=== PATIENT | female | born 1985 | race Caucasian/White ===

== ENCOUNTER → 2018-07-20 15:55 | Outpatient (CLI) | payer OTHER, SELFPAY ==
--- NOTE | 2018-07-20 15:58 | DI.MRI.S_ITS ---
PROCEDURE: MR ANKLE LT WO CON INDICATIONS: BILATERAL ANKLE PAIN TECHNIQUE: Noncontrast sagittal T1 spin echo and T2 fast spin echo with fat saturation, axial proton density fast spin echo and T2 fast spin echo with fat saturation, coronal T1 spin echo and T2 fast spin echo with fat saturation through the ankle/hindfoot. COMPARISON: None. FINDINGS: Image quality: Excellent. Bones and joints: No bone marrow contusions or fractures. No hindfoot coalitions. No osteochondral injuries of the talar dome. No pathologic joint effusions. Medial structures: The posterior tibialis, flexor digitorum longus, and flexor hallucis longus tendons are intact. The posterior tibial neurovascular bundle appears normal within the tarsal tunnel, without extrinsic mass effect. The deep layer (anterior and posterior tibiotalar ligaments) and superficial layer (tibionavicular, tibiospring, and tibiocalcaneal ligaments) of the deltoid ligament appear normal. The spring ligament components (superomedial calcaneonavicular, medioplantar oblique calcaneonavicular, and inferoplantar longitudinal ligaments) are intact. Lateral structures: The anterior talofibular, calcaneofibular, and posterior talofibular ligaments appear intact. More superiorly, the anterior and posterior tibiofibular ligaments appear intact, as is the intermalleolar ligament. The tibiofibular syndesmosis is normal in width at 2 mm or less. The peroneus longus and brevis tendons demonstrate normal location and morphology. Adjacent bony peroneal tubercle and retrotrochlear prominence are normal in size. The sinus tarsi demonstrates normal fatty signal, without edema, fibrosis, or cyst formation. Visualized sinus tarsi components (cervical ligament, interosseous talocalcaneal ligament, roots of the inferior extensor retinaculum) appear normal. The calcaneonavicular and calcaneocuboid components of the bifurcate ligament appear intact. The dorsal calcaneocuboid ligament appears intact. Anterior structures: The tibialis anterior, extensor hallucis longus, and extensor digitorum longus tendons appear intact. The dorsal talonavicular ligament appears intact. Posterior and plantar structures: Achilles tendon is intact. Achilles tendon is slightly thickened with adjacent peripheral increased T2 signal Medial and lateral bands of the plantar fascia are of normal thickness. No abductor digiti quinti muscle atrophy to suggest Kaur neuropathy. IMPRESSION: 1. Mild Achilles tendinosis. 2. No internal arrangement. Dictated by: Bessie Goss MD, PhD on 07/20/2018 at 17:39 Approved by: Bessie Goss MD, PhD on 07/23/2018 at 20:33
--- NOTE | 2018-07-20 15:58 | DI.MRI.S_ITS ---
PROCEDURE: MR ANKLE RT WO CON INDICATIONS: BILATERAL ANKLE PAIN TECHNIQUE: Noncontrast sagittal T1 spin echo and T2 fast spin echo with fat saturation, axial proton density fast spin echo and T2 fast spin echo with fat saturation, coronal T1 spin echo and T2 fast spin echo with fat saturation through the ankle/hindfoot. COMPARISON: None. FINDINGS: Image quality: Excellent. Bones and joints: No bone marrow contusions or fractures. No hindfoot coalitions. No osteochondral injuries of the talar dome. No pathologic joint effusions. Medial structures: The posterior tibialis, flexor digitorum longus, and flexor hallucis longus tendons are intact. The posterior tibial neurovascular bundle appears normal within the tarsal tunnel, without extrinsic mass effect. The deep layer (anterior and posterior tibiotalar ligaments) and superficial layer (tibionavicular, tibiospring, and tibiocalcaneal ligaments) of the deltoid ligament appear normal. The spring ligament components (superomedial calcaneonavicular, medioplantar oblique calcaneonavicular, and inferoplantar longitudinal ligaments) are intact. Lateral structures: The anterior talofibular, calcaneofibular, and posterior talofibular ligaments appear intact. More superiorly, the anterior and posterior tibiofibular ligaments appear intact, as is the intermalleolar ligament. The tibiofibular syndesmosis is normal in width at 2 mm or less. The peroneus longus and brevis tendons demonstrate normal location and morphology. Adjacent bony peroneal tubercle and retrotrochlear prominence are normal in size. The sinus tarsi demonstrates normal fatty signal, without edema, fibrosis, or cyst formation. Visualized sinus tarsi components (cervical ligament, interosseous talocalcaneal ligament, roots of the inferior extensor retinaculum) appear normal. The calcaneonavicular and calcaneocuboid components of the bifurcate ligament appear intact. The dorsal calcaneocuboid ligament appears intact. Anterior structures: The tibialis anterior, extensor hallucis longus, and extensor digitorum longus tendons appear intact. The dorsal talonavicular ligament appears intact. Posterior and plantar structures: Achilles tendon is intact. The Achilles tendon is slightly thickened with increased peripheral T2 signal. There is a small ganglion cysts at the insertion of the Achilles tendon on the calcaneus. Medial and lateral bands of the plantar fascia are of normal thickness. No abductor digiti quinti muscle atrophy to suggest Kaur neuropathy. IMPRESSION: 1. Mild Achilles tendinosis. 2. Small Achilles ganglion cyst. Dictated by: Bessie Goss MD, PhD on 07/20/2018 at 17:38 Approved by: Bessie Goss MD, PhD on 07/23/2018 at 20:30
== END ==
PROVIDERS: Visit Provider Podiatrist
DX: M25.572 Pain in left ankle and joints of left foot (principal); M25.571 Pain in right ankle and joints of right foot; M67.471 Ganglion, right ankle and foot; M67.873 Other specified disorders of tendon, right ankle and foot; M67.874 Other specified disorders of tendon, left ankle and foot
CPT/HCPCS: 73721

== ENCOUNTER 2018-11-14 07:20 | Day surgery (SDC) | payer OTHER, SELFPAY ==
--- NOTE | 2018-11-14 | PATH_ITS ---
[facility] Accession Number: [id number] . 01 Material submitted: . PART A: small bowel - SMALL BOWEL BIOPSIES PART B: gastrointestinal site - GASTRIC BIOPSIES . 01 Clinical history: . UNSPECIFIED ABDOMINAL PAIN B. R/O H. PYLORI . 02 Diagnosis: A. Small Bowel Biopsies: Small bowel mucosa with no diagnostic abnormality. Negative for active inflammation, features of sprue, dysplasia and malignancy. . B. Stomach, Biopsies: Antral and body-type mucosa with no diagnostic abnormality. Negative for Helicobacter organisms by immunohistochemistry. Negative for intestinal metaplasia. Negative for dysplasia and malignancy. . [facility] 11/16/2018 1412 Local . 02 Electronically signed: . Shabana Jurado MD, Pathologist NPI- [id number] . 01 Gross description: . Part A: SMALL BOWEL BIOPSIES: Received in formalin are 3 fragment(s) of ibarra, soft tissue measuring 0.1 x 0.1 x 0.1 cm to 0.2 x 0.2 x 0.2 cm which is entirely submitted and submitted entirely in 1 cassette(s) Part B: GASTRIC BIOPSIES: Received in formalin are 2 fragment(s) of ibarra, soft tissue measuring 0.1 x 0.1 x 0.1 cm to 0.3 x 0.2 x 0.2 cm which is entirely submitted and submitted entirely in 1 cassette(s) /[facility] [place] [facility] 11/14/2018 1909 Local . 02 Microscopic: . B. An immunohistochemical stain was performed to evaluate for Helicobacter organisms and is negative. The control stain showed appropriate reactivity. . * This test was developed and its performance characteristics determined by [facility]. It has not been cleared or approved by the U.S. Food and Drug Administration. The FDA has determined that such clearance or approval is not necessary. This test is used for clinical purposes. It should not be regarded as investigational or for research. . 02 Pathologist provided ICD-10: R10.9 . 02 CPT . 857855, 552884, [id number] Performed at: 01 [facility] [address] [id number] MD Karan Holbrook MD Phone: [phone] Performed at: 02 [place] [id number] [place] [id number] MD Shabana Jurado MD Phone: [phone]
[2018-11-14 07:44] VITALS: BP 115/71; PULSE 73; RESP 12; TEMP 36.2; O2SAT 100; BMI 21.1
--- NOTE | 2018-11-14 09:03 | PM.HP.1 ---
History of Present Illness History of Present Illness Date Patient Seen: 11/14/18 Time Patient Seen: 09:04 Chief complaint: [id number] Narrative: Ishmael is a 32 year old female who presented for EGD. Denies changes history since office vsisit 10/25/18. Patient History Medical History Achilles rupture, right (Acute) Anxiety (Acute) PTSD (post-traumatic stress disorder) (Acute) [place] teeth extracted (Acute) Surgical History H/O Achilles tendon repair (Acute) Family History (Updated 11/14/18 @ 07:57 by Siomara Rizvi RN) Grandmother Stomach cancer Social History household members: other Family & Social History Family History (Updated 11/14/18 @ 07:57 by Siomara Rizvi RN) Grandmother Stomach cancer Social History: household members other Meds Home Medications and Allergies Home Medications Medication Instructions Recorded Confirmed Type Lexapro 30 mg PO DAILY 11/14/18 11/14/18 History Singulair 10 mg PO DAILY 11/14/18 11/14/18 History cetirizine [Zyrtec] 10 mg PO DAILY 11/14/18 11/14/18 History clonidine 0.3 mg PO QPM 11/14/18 11/14/18 History Allergies Allergy/AdvReac Type Severity Reaction Status Date / Time red dye Allergy Severe Swelling Verified 11/14/18 07:58 of Lip/Tongue/Throat yellow dye AdvReac Intermediate Anaphylaxis Verified 11/14/18 08:00 Review of Systems Review of Systems ROS Unobtainable: All systems reviewed & are unremarkable except as noted in HPI and below Exam Vital Signs (past 8 hours): - 11/14/18 07:44 Temperature 97.1 F L Pulse Rate 73 Respiratory Rate 12 Blood Pressure 115/71 Pulse Oximetry 100 Oxygen Delivery Method Room Air Narrative Exam Narrative: No acute distress Const General: cooperative, healthy appearing and comfortable Nutritional Appearance: well nourished Orientation: alert, awake and oriented x3 Neck Neck: normal visual inspection Resp Effort & Inspection: normal respiratory effort and able to speak in complete sentences Auscultation: clear to auscultation bilaterally Cardio Rate: regular rate Rhythm: regular rhythm Heart Sounds: S1 normal and S2 normal GI Palpation: soft and no hepatosplenomegaly Auscultation: normal bowel sounds Extrem General: normal to inspection Assessment & Plan Assessment & Plan narrative: 1. Abdominal pain 2. Diarrhea 3. Nausea and votmiting - EGD today
--- NOTE | 2018-11-14 09:21 | PM.OP.ENDO ---
Operative Date/Time/Diagnoses Date of procedure: 11/14/18 Time of procedure: 09:06 Pre-op diagnosis: Epigastric pain, Nausea and vomiting, diarrhea Procedure & Clinicians Study performed: Esophagogastroduodenoscopy with biopsy Surgeon: Cynthia Snyder Procedure Notes Procedure in detail: Surgeon: Cynthia Snyder DO Procedure: Esophagogastroduodenoscopy with biposy Preoperative diagnosis: Epigastric pain, Nausea and vomiting, Diarrhea Postoperative diagnosis: 1. Mild Gastritis - biopsied for h pylori 2. Normal appearing esophagus 3. Normal appearing Duodenum - biopsied for celaic sprue Medications: Conscious sedation using 8 mg IV of Midazolam and 125 mcg IV of Fentanyl Preanesthesia Assessment An H and P was performed/updated and the Px?s ASA class is 1. The procedure was discussed in detail with the patient. The potential risks and complications including infection, bleeding, missed lesions, perforation, need for surgery in case of perforation, prolonged hospital stay, and were explained. A brief question and answer period was allotted and once all questions were answered, informed consent was obtained. The patient was brought back to the procedure room and placed on standard monitoring. The patient?s vital signs were monitored continuously throughout the entire procedure. Prior to starting, a timeout was performed to confirm the patient?s identity, allergies, medications, and procedure. Procedure in detail The patient was placed in left lateral decubitus position and a bite block was inserted. The tip of the upper endoscope was placed into the mouth and advanced without difficulty under direct visualization into the esophagus. Esophagus: - Normal appearing esophagus and Z line Stomach: - Mild antral gastritis - biopsied - Normal on retroflex Duodenum: - Normal appearing duodenum - biopsied The patient tolerated the procedure well and will be brought back to the recovery area to be discharged once criteria are met. The total physician intraservice time was 15min . Complications There were no complications and estimated blood loss was minimal. Recommendations: Resume previous diet Continue outPx medications Follow up pathology results Office follow up if persistent symptoms An emergency contact number was given to the patient for any complications related to the procedure Sedation minutes: 15
[2018-11-14] MEDS: MIDAZOLAM 5 MG/5 ML VIAL IV (09:25)
[2018-11-14] MEDS: fentaNYL 250 MCG/5 ML INJ IV (09:25)
[2018-11-14 09:28] VITALS: BP 112/70; PULSE 87; RESP 16; TEMP 36.7; O2SAT 96
[2018-11-14 09:33] VITALS: BP 111/73; PULSE 88; RESP 17; O2SAT 97
[2018-11-14 09:38] VITALS: BP 109/67; PULSE 84; RESP 16; O2SAT 97
[2018-11-14 09:42] VITALS: BP 117/74; PULSE 90; RESP 14; O2SAT 97
--- NOTE | 2018-11-14 09:54 | SUR.PHASEI ---
PACU Phase 1 note; pt transferred A/O, stable, VSS, no n/v
[2018-11-14 10:15] VITALS: BP 102/68; PULSE 92; RESP 16; TEMP 37.3; O2SAT 99
== END 2018-11-14 10:15 | disposition home or self-care (01) ==
PROVIDERS: PCP Registered Nurse Diabetes Educator; Visit Provider Student in an Organized Health Care Education/Training Program
PROC: 0DJ08ZZ Inspection of Upper Intestinal Tract, Via Natural or Artificial Opening Endoscopic (ICD-10-PCS; CPT 43235; principal; 2018-11-14 09:00)
DX: K29.70 Gastritis, unspecified, without bleeding (principal)
CPT/HCPCS: 43239; J2250; J3010

== ENCOUNTER 2019-03-23 02:48 | Observation (INO) | payer OTHER, SELFPAY ==
[2019-03-23] VITALS (15 sets, daily range): BP systolic 79–130; BP diastolic 43–82; PULSE 60–93; RESP 13–22; TEMP 35.9–37.1; O2SAT 96–100; BMI 21.4; BMI 20.8
--- NOTE | 2019-03-23 | PATH_ITS ---
[facility] Accession Number: [id number] . 01 Material submitted: . appendix - APPENDIX . 01 Clinical history: . STOMACH PAINS/SWELLING, VOMITING X3 HOURS . 02 Diagnosis: Appendix, Appendectomy: Acute suppurative appendicitis with serositis. No evidence of dysplasia or malignancy. [facility] 03/27/2019 1337 Local . 02 Electronically signed: . Shabana Jurado MD, Pathologist NPI- [id number] . 01 Gross description: . Received in formalin, labeled appendix, is an intact appendix (length-5.7 cm, diameter-0.9 cm) with weston-white smooth shiny partially exudate-covered serosa and mesoappendix (up to 1.5 cm in depth). The resection margin is received open. The lumen contains clear colorless fluid. The wall is up to 0.2 cm. No nodules, masses or lesions are identified. The resection margin is inked blue. Section code: (A1) resection margin en face and three security systems sales representative serial sections; (A2) one-half of the bivalved tip. ([id number]) /MRV 03/26/2019 1259 Local . 02 Pathologist provided ICD-10: K35.80 . 02 CPT . 245666 Performed at: 01 [facility] [address], [place], [place] [id number] MD Karan Holbrook MD Phone: [phone] Performed at: 02 [facility] [address] [place], [place] [id number] MD Shabana Jurado MD Phone: [phone]
[2019-03-23] MEDS: SODIUM CHLORIDE 0.9% 1,000 ML 1000 ML IV (03:02)
[2019-03-23] MEDS: ONDANSETRON 4 MG/2 ML INJ IV (03:02)
[2019-03-23 03:05] LABS: Add Manual Diff / Slide Review NO; Basophils Absolute Auto 0 /uL (0-100); Basophils Percent Auto 0.2 % (0-2); Eosinophils Absolute Auto 0 /uL (0-450); Hemoglobin 14.1 g/dL (12.0-16.0); Lymphocytes Absolute Auto 700 /uL (1100-4500); Lymphocytes Percent Auto 3.4 % (25-40); Mean Corpuscular HGB Conc 35.2 % (30-36); Mean Corpuscular Hemoglobin 34.1 PG (26-34); Mean Corpuscular Volume 96.9 fL (80-100); Monocytes Absolute Auto 600 /uL (0-900); Monocytes Percent Auto 3.2 % (3-14); Neutrophils Absolute Auto 18700 /uL (1500-7000); Neutrophils Percent Auto 93.2 % (50-75); Platelet Count 235 X10^3/uL (150-400); Red Blood Cell Count 4.12 X10^6/uL (4.0-5.2); Red Cell Distribution Width 12.9 % (11.6-14.8); White Blood Cell Count 20.1 X10^3/uL (4.5-11.0)
--- NOTE | 2019-03-23 03:13 | DI.CT.S_ITS ---
PROCEDURE: CT ABDOMEN PELVIS W CON INDICATIONS: Right lower quadrant abdominal pain eval for appy TECHNIQUE: After the administration of oral and intravenous contrast, 5 mm thick sections acquired from the diaphragms to the symphysis. 5 mm thick coronal and sagittal reformats were performed. For radiation dose reduction, the following was used: automated exposure control, adjustment of mA and/or kV according to patient size. COMPARISON: None. FINDINGS: Image quality: Diagnostic. ABDOMEN: Lung bases: Lung bases are clear. Heart size is normal. Solid organs: Liver is normal in size and enhancement. Gallbladder is not enlarged or adequately evaluated. Biliary system is non-dilated. Pancreas enhances normally. Spleen is normal in size and enhancement. No adrenal nodules. Kidneys are normal in size and enhancement, without hydronephrosis. Peritoneum and bowel: The stomach is unremarkable. The small bowel loops are nondilated. A moderate amount of residual stool is seen within the proximal colon. The appendix is slightly prominent in size and demonstrates peripheral enhancement, measuring up to approximately 10 mm in diameter (image 25, series 4). No definite appendicoliths are appreciated. No free fluid or loculated fluid collection is identified. There is no free air. Nodes and vessels: No retroperitoneal or mesenteric adenopathy. Aorta and inferior vena cava are normal in caliber. Bones: No acute fracture or suspicious osseous lesion is identified. Mild degenerative changes at the thoracolumbar junction are noted. There may be small posterior disc bulges on the lower lumbar spine which are not well characterized on CT. PELVIS: Genitourinary: Bladder wall thickness is normal. An intrauterine contraceptive device is noted. The ovaries are not adequately seen, but do not appear to be enlarged. Miscellaneous: No inguinal hernias or adenopathy. A small amount of free fluid is seen within the pelvis. There is no loculated fluid collection or free air. Bones: No suspicious bony lesions. No acute pelvic fractures are identified. IMPRESSION: 1. Mild acute appendicitis. 2. Small amount of pelvic ascites is likely reactive. There is no abscess appreciated. 3. No bowel obstruction. 4. Mild proximal colonic constipation. Note: The preliminary report provided by [employer]. is concordant with the final report. Dictated by: Ronnell Simental M.D. on 03/23/2019 at 9:05 Approved by: Ronnell Simental M.D. on 03/23/2019 at 9:11
--- NOTE | 2019-03-23 03:13 | ED_ITS ---
HPI - Abdominal Pain General Chief Complaint: Abdominal Pain Stated Complaint: stomach pains/swelling, vomitting x3hrs Time Seen by Provider: 03/23/19 02:53 Source: patient Mode of arrival: Family Vehicle Limitations: no limitations History of Present Illness HPI narrative: 33-year-old female here for evaluation of generalized abdominal pain nausea and vomiting and diarrhea. Pain started within the past 12 hours. Has worsened since then. No fevers. No urinary symptoms. No vaginal bleeding. Has an IUD in place that his been there for the past year. Has not had any regular menstrual cycle since then. No prior abdominal surgeries. Has been in the past. Has not tried anything for symptoms prior to arrival. Patient states the abdominal pain started prior to the nausea and vomiting and diarrhea Related Data Home Medications Medication Instructions Recorded Confirmed Lexapro 30 mg PO DAILY 11/14/18 11/14/18 Singulair 10 mg PO DAILY 11/14/18 11/14/18 cetirizine [Zyrtec] 10 mg PO DAILY 11/14/18 11/14/18 clonidine 0.3 mg PO QPM 11/14/18 11/14/18 Allergies Allergy/AdvReac Type Severity Reaction Status Date / Time red dye Allergy Severe Swelling Verified 03/23/19 05:12 of Lip/Tongue/Throat yellow dye AdvReac Intermediate Anaphylaxis Verified 03/23/19 05:12 Review of Systems Constitutional Constitutional: Denies fever(s) Cardiovascular Cardiovascular: Denies chest pain and Denies dyspnea Respiratory Respiratory: Denies dyspnea Gastrointestinal Gastrointestinal: Reports abdominal pain, Reports diarrhea, Reports nausea and Reports vomiting Genitourinary Genitourinary: Denies dysuria and Denies vaginal discharge Musculoskeletal Musculoskeletal: Denies myalgias and Denies arthralgias Integumentary/Breasts Skin/Breast: Denies rash Neurologic Neurologic: Denies behavioral changes Psychiatric Psychiatric: Denies behavioral changes Hematologic/Lymphatic Hematologic/Lymphatic: Denies easy bleeding and Denies easy bruising Patient History Medical History Achilles rupture, right (Acute) Anxiety (Acute) PTSD (post-traumatic stress disorder) (Acute) Family History (Updated 11/14/18 @ 07:57 by Siomara Rizvi RN) Grandmother Stomach cancer Social History household members: other Smoking Status: Never smoker Smoking Status: Never smoker Substance Use Type: does not use Exam Initial Vital Signs Initial Vital Signs: Vital Signs Temperature 98.1 F 03/23/19 02:55 Pulse Rate 78 03/23/19 02:55 Respiratory Rate 17 03/23/19 02:55 Blood Pressure 130/82 03/23/19 02:55 Pulse Oximetry 97 03/23/19 02:55 Const General: cooperative, No comfortable (Uncomfortable), well developed and well groomed Limitations: mental status not altered HENCO Head: normal to inspection and normocephalic Resp Effort & Inspection: normal respiratory effort Auscultation: clear to auscultation bilaterally Cardio Rate: regular rate Rhythm: regular rhythm GI Inspection: non-distended Palpation: soft, No firm, guarding and tender (Generalized with right lower quadrant in greatest point of pain) Back/Spine/Pelvis Back: No CVA tenderness Skin Lesions: no lesions Rashes: no rashes Neuro General: alert and awake Cognition: normal cognition Speech: speech normal Extrem General: normal to inspection and capillary refill normal Psych Appearance: grossly normal and well kempt Course Orders Ordered: ED Orders 03/23/19 03:00 Complete Blood Count AUTO DIFF Stat Comprehensive Metabolic Panel Stat Lipase Stat Test Serum,Qual Stat 03/23/19 03:13 CT abdomen pelvis w con Stat Sodium Chloride (Normal Saline 0.9%) 1,000 mls @ 125 mls/hr IV CONT MAGED Last Admin: 03/23/19 05:08 Dose: 125 mls/hr Documented by: RODRIGO Discontinued Medications Sodium Chloride (Normal Saline 0.9%) 1,000 mls @ 1,000 mls/hr IV BOLUS ONE Stop: 03/23/19 03:53 Last Infusion: 03/23/19 04:17 Dose: 0 mls/hr Documented by: Admin: 03/23/19 03:02 Dose: 1,000 mls/hr Documented by: RODRIGO Piperacillin/Tazobactam/Dextrose (Zosyn) 3.375 gm in 50 mls @ 100 mls/hr IV NOW ONE Stop: 03/23/19 05:25 Last Infusion: 03/23/19 05:46 Dose: 0 mls/hr Documented by: Admin: 03/23/19 05:08 Dose: 100 mls/hr Documented by: RODRIGO Morphine Sulfate (Morphine) 4 mg IV NOW ONE Stop: 03/23/19 03:13 Last Admin: 03/23/19 03:18 Dose: 4 mg Documented by: RODRIGO Morphine Sulfate (Morphine) 2 mg IV NOW ONE Stop: 03/23/19 05:12 Last Admin: 03/23/19 05:14 Dose: 2 mg Documented by: RODRIGO Ondansetron HCl (Zofran) 4 mg IV NOW ONE Stop: 03/23/19 02:55 Last Admin: 03/23/19 03:02 Dose: 4 mg Documented by: RODRIGO Vital Signs Vital signs: Vital Signs - 8 hr 03/23/19 02:55 03/23/19 04:12 Temperature 98.1 F Pulse Rate 78 60 Respiratory Rate 17 22 Blood Pressure 130/82 Blood Pressure [Left Arm] 118/73 Pulse Oximetry 97 99 MDM - Abdominal Pain Lab Data Attestation: I reviewed the patient's lab results. Result diagrams: 03/23/19 03:00 03/23/19 03:00 Labs: Lab Results 03/23/19 03/23/19 03/23/19 Range/Units 03:00 03:00 03:00 WBC 20.1 H (4.5-11.0) X10^3/uL RBC 4.12 (4.0-5.2) X10^6/uL Hgb 14.1 (12.0-16.0) g/dL Hct 40.0 (36-46) % MCV 96.9 (80-100) fL MCH 34.1 H (26-34) PG MCHC 35.2 (30-36) % RDW 12.9 (11.6-14.8) % Plt Count 235 (150-400) X10^3/uL Neut % (Auto) 93.2 H (50-75) % Lymph % (Auto) 3.4 L (25-40) % [place] % (Auto) 3.2 (3-14) % Eos % (Auto) 0.0 L (2-4) % Baso % (Auto) 0.2 (0-2) % Neut # (Auto) 99546 H (6862-9584) /uL Lymph # (Auto) 700 L (3192-4146) /uL [place] # (Auto) 600 (0-900) /uL Eos # (Auto) 0 (0-450) /uL Baso # (Auto) 0 (0-100) /uL Sodium 139 (137-145) mmol/L Potassium 4.0 (3.4-5.1) mmol/L Chloride 101 (98-107) mmol/L Carbon Dioxide 27 (22-32) mmol/L BUN 13 (7-17) mg/dL Creatinine 0.70 (0.52-1.04) mg/dL Estimated GFR > 60.0 (>60) mL/min BUN/Creatinine Ratio 18.6 (6-22) Glucose 182 H (70-100) mg/dL Calcium 9.9 (8.4-10.2) mg/dL Total Bilirubin 0.9 (0.2-1.3) mg/dL AST 27 (14-36) IU/L ALT 18 (<35) IU/L Alkaline Phosphatase 61 (38-126) U/L Total Protein 8.0 (6.3-8.2) g/dL Albumin 4.9 (3.5-5.0) g/dL Globulin 3.1 (1.7-4.1) g/dL Albumin/Globulin Ratio 1.6 (1.0-2.8) Lipase 56 (23-300) U/L Serum , Qual (Negative) 03/23/19 Range/Units 03:00 WBC (4.5-11.0) X10^3/uL RBC (4.0-5.2) X10^6/uL Hgb (12.0-16.0) g/dL Hct (36-46) % MCV (80-100) fL MCH (26-34) PG MCHC (30-36) % RDW (11.6-14.8) % Plt Count (150-400) X10^3/uL Neut % (Auto) (50-75) % Lymph % (Auto) (25-40) % [place] % (Auto) (3-14) % Eos % (Auto) (2-4) % Baso % (Auto) (0-2) % Neut # (Auto) (5647-1158) /uL Lymph # (Auto) (9157-1268) /uL [place] # (Auto) (0-900) /uL Eos # (Auto) (0-450) /uL Baso # (Auto) (0-100) /uL Sodium (137-145) mmol/L Potassium (3.4-5.1) mmol/L Chloride (98-107) mmol/L Carbon Dioxide (22-32) mmol/L BUN (7-17) mg/dL Creatinine (0.52-1.04) mg/dL Estimated GFR (>60) mL/min BUN/Creatinine Ratio (6-22) Glucose (70-100) mg/dL Calcium (8.4-10.2) mg/dL Total Bilirubin (0.2-1.3) mg/dL AST (14-36) IU/L ALT (<35) IU/L Alkaline Phosphatase (38-126) U/L Total Protein (6.3-8.2) g/dL Albumin (3.5-5.0) g/dL Globulin (1.7-4.1) g/dL Albumin/Globulin Ratio (1.0-2.8) Lipase (23-300) U/L Serum , Qual Negative (Negative) Imaging Data CT scan - abdomen/pelvis: Radiologist's Impression: Acute appendicitis without abscess MDM Narrative Medical decision making narrative: Less than 12 hours of generalized abdominal pain. On exam the maximum point of intensity his right lower quadrant. Has some guarding. afebrile but does have leukocytosis. CT scan shows acute appendicitis. Discussed the case with Dr. Grullon with General surgery who will admit. Discussed the diagnosis with the patient expressed understanding and agreement. Discharge Plan Departure Patient Disposition: Admitted As Inpatient Clinical Impression: Acute appendicitis Qualifiers: Acute appendicitis type: with localized peritonitis Appendicitis gangrene presence: without gangrene Appendicitis perforation presence: without perfora tion Appendicitis abscess presence: without abscess Qualified Code(s): K35.30 - Acute appendicitis with localized peritonitis, without perforation or gangrene Referrals: Julius Walters CNP [Primary Care Provider] - Admit Date/Time: 03/23/19 05:26 Admit Provider: Sandy Grullon
[2019-03-23 03:16] LABS: Alanine Aminotransferase 18 IU/L (<35); Albumin 4.9 g/dL (3.5-5.0); Albumin Globulin Ratio 1.6 (1.0-2.8); Alkaline Phosphatase 61 U/L (38-126); Aspartate Aminotransferase 27 IU/L (14-36); BUN Creatinine Ratio 18.6 (6-22); Bilirubin Total 0.9 mg/dL (0.2-1.3); Blood Urea Nitrogen 13 mg/dL (7-17); Calcium 9.9 mg/dL (8.4-10.2); Carbon Dioxide 27 mmol/L (22-32); Chloride 101 mmol/L (98-107); Estimated Glomerular Filt Rate > 60.0 mL/min (>60); Globulin 3.1 g/dL (1.7-4.1); Glucose 182 mg/dL (70-100); HEMOLYSIS < 15 (0-50); Sodium 139 mmol/L (137-145)
[2019-03-23 03:17] LABS: Lipase 56 U/L (23-300)
[2019-03-23] MEDS: MORPHINE 4 MG/ML INJ IV (03:18)
[2019-03-23 03:21] LABS: Pregnancy Test Serum,Qual Negative (Negative)
[2019-03-23] MEDS: SODIUM CHLORIDE 0.9% 1,000 ML 125 ML IV (05:08)
[2019-03-23] MEDS: PIPERACILLIN-TAZO 3.375 GM/50 ML FROZ.PIGGY IV (05:08)
[2019-03-23] MEDS: MORPHINE 2 MG/ML INJ IV ×4 (05:14→17:57)
--- NOTE | 2019-03-23 05:53 | PC.NURSE ---
normal saline to continue in acute care
--- NOTE | 2019-03-23 06:06 | P.HP_ITS ---
History of Present Illness History of Present Illness Date Patient Seen: 03/23/19 Time Patient Seen: 06:06 Chief complaint: stomach pains/swelling, vomitting x3hrs Narrative: This is a 33-year-old woman who has a history of IBS, anxiety, and seasonal allergies. About 2 days ago she started having some vague generalized abdominal pain. After exerting herself yesterday helping a friend moving some things, she had more severe pain, and last evening she started having diarrhea and vomiting which became more severe during the night and was persistent for about 3 hours before she came into the ER. In the ER she was found to have white blood cell count of [address] scan was found to have a dilated thickened appendix. Her pain has been come more focal in the right lower quadrant, and her nausea and vomiting have been relieved by antiemetics. Her pain has improved with morphine. She says she feels some pressure when she urinates, but no burning with urination, and no blood in the urine that she has noticed. She denies melena hematochezia. She denies unexplained weight loss. The patient has a severe allergy to red dye, and she gets her clonidine from a specialized pharmacy that makes them white. She has been instructed to bring in her home medications. Past medical history: Vaginal x2 Anxiety PTSD Seasonal allergies Past surgical history: Denies Patient gives a medication list which differs from the recorded med list. Home meds: Clonidine 0.5 mg q.p.m. daily Clonidine 0.1 mg Q a.m. daily Clonidine 0.1 mg at 1:00 p.m. daily Lexapro 30 mg daily ROS: Constitutional: Denies fever(s) Cardiovascular: Denies chest pain and Denies dyspnea Respiratory: Denies dyspnea Gastrointestinal: As per HPI Genitourinary: Denies dysuria and Denies vaginal discharge Musculoskeletal: Denies myalgias and Denies arthralgias Integumentary/Breasts Skin/Breast: Denies rash Neurologic: Denies behavioral changes Psychiatric: Anxiety, denies behavioral changes Hematologic/Lymphatic: Denies easy bleeding/easy bruising PE: GENERAL: Appears ill but nontoxic. Appears stated age. Answers questions promptly and appropriately. Vital signs noted. HENT: Normocephalic, atraumatic. Hearing intact. Oral mucosa is pink and moist. EYES: Conjunctiva pink, sclera white, no periorbital swelling. CARDIOVASCULAR: Regular rate. No pedal edema. RESPIRATORY: Non-tachypneic, breathing comfortably on room air. GASTROINTESTINAL: Abdomen soft and non-distended; focally tender to palpation in the right lower quadrant, positive Rovsing sign GENITALURINARY: No flank tenderness. MUSCULOSKELETAL: Equal tone and mass bilaterally. SKIN: Warm, dry, soft, appropriate color for ethnicity. No other lesions, rashes, or wounds. NEURO: Alert and Oriented X 3. No gross sensory deficits, or cognitive issues. PSYCH: Appropriate affect and mood. Patient History Medical History Achilles rupture, right (Acute) Anxiety (Acute) PTSD (post-traumatic stress disorder) (Acute) Surgical History H/O Achilles tendon repair (Acute) [place] teeth extracted (Acute) Family & Social History Family History Grandmother Stomach cancer Social History: household members other Safety & Behavioral: Feels Safe in Current Yes Environment Tobacco & Substance use: Smoking Status Never smoker Substance Use Type does not use Meds Home Medications and Allergies Home Medications Medication Instructions Recorded Confirmed Type Lexapro 30 mg PO DAILY 11/14/18 11/14/18 History Singulair 10 mg PO DAILY 11/14/18 11/14/18 History cetirizine [Zyrtec] 10 mg PO DAILY 11/14/18 11/14/18 History clonidine 0.3 mg PO QPM 11/14/18 11/14/18 History Allergies Allergy/AdvReac Type Severity Reaction Status Date / Time red dye Allergy Severe Swelling Verified 03/23/19 05:12 of Lip/Tongue/Throat yellow dye AdvReac Intermediate Anaphylaxis Verified 03/23/19 05:12 Exam Vital Signs (past 8 hours): - 03/23/19 02:55 03/23/19 04:12 03/23/19 05:53 Temperature 98.1 F Pulse Rate 78 60 78 Respiratory Rate 17 22 14 Blood Pressure 130/82 111/74 Blood Pressure [Left Arm] 118/73 Pulse Oximetry 97 99 100 Oxygen Delivery Method Room Air Objective Labs Result Diagrams: 03/23/19 03:00 03/23/19 03:00 Labs: Laboratory Results - last 24 hr 03/23/19 03/23/19 03/23/19 03:00 03:00 03:00 WBC 20.1 H RBC 4.12 Hgb 14.1 Hct 40.0 MCV 96.9 MCH 34.1 H MCHC 35.2 RDW 12.9 Plt Count 235 Neut % (Auto) 93.2 H Lymph % (Auto) 3.4 L [place] % (Auto) 3.2 Eos % (Auto) 0.0 L Baso % (Auto) 0.2 Neut # (Auto) 34656 H Lymph # (Auto) 700 L [place] # (Auto) 600 Eos # (Auto) 0 Baso # (Auto) 0 Sodium 139 Potassium 4.0 Chloride 101 Carbon Dioxide 27 BUN 13 Creatinine 0.70 Estimated GFR > 60.0 BUN/Creatinine Ratio 18.6 Glucose 182 H Calcium 9.9 Total Bilirubin 0.9 AST 27 ALT 18 Alkaline Phosphatase 61 Total Protein 8.0 Albumin 4.9 Globulin 3.1 Albumin/Globulin Ratio 1.6 Lipase 56 Serum , Qual 03/23/19 03:00 WBC RBC Hgb Hct MCV MCH MCHC RDW Plt Count Neut % (Auto) Lymph % (Auto) [place] % (Auto) Eos % (Auto) Baso % (Auto) Neut # (Auto) Lymph # (Auto) [place] # (Auto) Eos # (Auto) Baso # (Auto) Sodium Potassium Chloride Carbon Dioxide BUN Creatinine Estimated GFR BUN/Creatinine Ratio Glucose Calcium Total Bilirubin AST ALT Alkaline Phosphatase Total Protein Albumin Globulin Albumin/Globulin Ratio Lipase Serum , Qual Negative Assessment & Plan Assessment and plan (1) Acute appendicitis: Problem details: Acute appendicitis, with severe nausea/vomiting/diarrhea for the past 12 hours. Qualifiers: Acute appendicitis type: with localized peritonitis Appendicitis abscess presence: without abscess Appendicitis gangrene presence: without gangrene Appendicitis perforation presence: without perforation Qualified Code(s): K35.30 - Acute appendicitis with localized peritonitis, without perforation or gangrene Current visit: Yes Status: Acute (2) Anxiety: Current visit: No Status: Acute Assessment & Plan narrative: 33 yo woman with acute non-perforated appendicitis. Plan: Admit for IV fluids, antiemetics, pain management, antibiotics, and laparoscopic appendectomy Consent for surgery Quality VTE Deep Vein Thrombosis/Pulmonary Embolism Present on Admission: No
--- NOTE | 2019-03-23 06:28 | PC.ADMIT ---
[address] Admission Note: The patient,Karoline Mckeon,33 y/o, was given written information regarding hospital policies, unit procedures and contact persons. Patient's smoking status: Never smoker. Vital Signs - 8 hr 03/23/19 02:55 03/23/19 04:12 03/23/19 05:53 Temperature 98.1 F Pulse Rate 78 60 78 Respiratory Rate 17 22 14 Blood Pressure 130/82 111/74 Blood Pressure [Left Arm] 118/73 Pulse Oximetry 97 99 100 03/23/19 06:00 Temperature 98.4 F Pulse Rate 76 Respiratory Rate 16 Blood Pressure 121/58 L Blood Pressure [Left Arm] Pulse Oximetry 100 Patient arrived via W/C accompanied by ED TRUST ADMINISTRATOR, lolis, able to make needs known. Assessment notable for abdominal pain, nausea, vomiting, and diarrhea, pain of 5/10 in abdomen. Patient is currently NPO for surgery @ 0830. Oriented to room, call light, and safety measures, acknowledged all teaching. Patient currently a low fall risk.
--- NOTE | 2019-03-23 07:31 | PC.NURSE ---
Addendum entered by Rasta Valverde R.N. 03/23/19 08:41: Pt off the floor to OR with OR crew. Pt up to void, IV HL'd prior to going down. Original Note: Pt alert and oriented, aware of pending surgery. resting presently, stating pain and nausea better though she still feels a bit dizzy. Settled to bed after void. resting presently.
[2019-03-23] MEDS: LACTATED RINGERS 1,000 ML 42 ML IV (09:00)
--- NOTE | 2019-03-23 09:00 | PM.PREOP ---
Pre-operative Note Interval Note History & Physical reviewed/Exam performed by Physician: Yes Changes to H&P: No
[2019-03-23] MEDS: CEFOTETAN 2 GM/50 ML PIGGYBACK IV (09:15)
--- NOTE | 2019-03-23 09:46 | SUR.OPER ---
Supine on padded OR bed, head on pillow, arms secured on padded arm boards at <90 degrees abduction, legs uncrossed, safety belt at thigh, tape over blanket over lower legs.
[2019-03-23] MEDS: BUPIVACAINE 0.5% (PF) VIAL 30 ML INJ (09:55)
--- NOTE | 2019-03-23 10:12 | CM.DANOTE ---
DCP Brief Assessment Note Patient is a 33 year old female who was admitted on 03/23/19 for Stomach pains/swelling, vomiting. Pt has [id number] for insurance and her PCP is Dr. Julius Walters. EMR was reviewed. Per Surgeon, pt has a hx of Irritable Bowel Syndrome and anxiety/PTSD and admitted with nausea and vomiting. Pt with Acute Appendicitis and scheduled for Lap Appe today and currently off floor in surgery. Plan: SW to follow after surgical procedure for bedside assessment to confirm pt will be safe for d/c home with enough supports to assist at home and any further identified discharge planning needs. PARKER Do
--- NOTE | 2019-03-23 10:49 | PM.OP.1 ---
Operative Date/Time/Diagnoses Date of procedure: 03/23/19 Time of procedure: 10:49 Pre-op diagnosis: Right lower quadrant pain/acute appendicitis Post-op diagnosis: same Procedure & Clinicians Procedure: Laparoscopic appendectomy Same procedure as scheduled: Yes Indications: Short history of right lower quadrant pain and a CT consistent with acute appendicitis Surgeon: Sherwin Nicole Click Yes if Unassisted: Yes Anesthesia Type: General Operative Notes Findings: Acute appendicitis Closure Type: primary Specimen(s): other (Appendix) Estimated Blood Loss (mL): 5 Blood products transfused: none Procedure in detail: The patient is placed supine on the operating room table and underwent general endotracheal anesthesia. She was prepped and draped in the usual fashion. I irrigated out her channel at her umbilicus for her umbilical ring. Local anesthetic was infiltrated in an incision was made under the umbilicus and carried down under direct vision into the peritoneal cavity. Stay sutures of 0 Vicryl were placed in the fascia. A cannula was inserted and the abdomen was insufflated. Two additional ports were placed 1 in the suprapubic area avoiding the bladder and 1 in the left lower quadrant. The appendix was identified as a dilated inflamed structure the tip of which was encased in omentum. Using blunt dissection I peeled the omentum away and divided the mesoappendix using cautery. A loop was placed across the base of 0 PDS and cinched down. The appendix was grasped distal to this to prevent leakage and the appendix was divided using scissors and cautery. The appendix was immediately placed in a bag. There was no spillage. It was removed without difficulty through the umbilical port. the right gutter and pelvis were irrigated and suctioned free of fluid. There had been almost no bleeding. There had been no drainage. After irrigating out the right lower quadrant pelvis and suctioned the fluid free I removed all the ports. The stay sutures at the umbilicus were tied and an additional suture was placed between them of 2 0 PDS. The wounds were irrigated and 4 0 Vicryl subcuticular stitches were used to close the skin along with Steri-Strips. Dressings were applied and the patient was awakened extubated taken recovery area in good condition. Her Coll[place] was removed prior to leaving the operating room. Complications: none Post-operative Condition: stable Disposition: PACU
[2019-03-23] MEDS: DEXTROSE 5%-0.45% NS 1,000 ML 80 ML IV (11:49)
--- NOTE | 2019-03-23 16:13 | PC.NURSE ---
Addendum entered by Margaux Durbin R.N. 03/23/19 22:35: Awakened patient at 2100 to ask her about her home meds and whether she had brought them in. She replied that she had already taken them. Her BP was 79/43 to which she replied, it always goes real low after I take my pills. Pain is still at 2 back to sleep. Call carrera within reach. Addendum entered by Margaux Durbin R.N. 03/23/19 18:33: Given 2mg Morhine for right sided pain. Asked for diet and consumed same w/o nausea Original Note: Patient ambulated in [place] with [employer] and family. Tolerated well. Complained of shoulder and right sided pain, probably secondary to abd surgery, states it is more achy than pain. Family to return home and patient will discharge in AM
[2019-03-24 00:25] VITALS: BP 94/46; PULSE 71; RESP 16; TEMP 36.7; O2SAT 100
[2019-03-24] MEDS: DEXTROSE 5%-0.45% NS 1,000 ML 80 ML IV (01:41)
[2019-03-24 05:33] VITALS: BP 94/55; PULSE 67; RESP 16; TEMP 36.6; O2SAT 99
[2019-03-24] MEDS: KETOROLAC 30 MG/ML VIAL IV (05:51)
[2019-03-24 08:00] VITALS: BP 98/55; PULSE 72; RESP 16; TEMP 37.1; O2SAT 100
[2019-03-24] MEDS: ESCITALOPRAM 10 MG TABLET 30 MG PO (08:57)
[2019-03-24] MEDS: ENOXAPARIN 40 MG/0.4 ML SYRINGE SUBCUT (08:57)
--- NOTE | 2019-03-24 10:33 | PM.DS.1 ---
History of Present Illness History of Present Illness Chief complaint: stomach pains/swelling, vomitting x3hrs Discharge Providers Provider Date of admission: 03/23/19 05:26 Discharge Date: 03/25/19 Primary care physician: Julius Walters CNP Consults: 03/23/19 06:23 Consult to Pharmacy Routine Comment: TAKES UN-DYED CLONIDINE; WILL BRING FROM HOME 03/23/19 06:25 Consult to Pharmacy Routine Comment: 0.1mg clonidine QAM and 1PM daily; undyed 03/23/19 11:28 Consult to Discharge Planning Routine Comment: Discharge provider: Sherwin Nicole MD Summary Hospital Course Discharge Diagnosis: Acute appendicitis Status at Discharge Cognitive/behavioral status at discharge: oriented Functional status at discharge: independent ambulation Overall status at discharge: patient is progressing back to baseline Time Spent with Patient Time spent: Less than 30 minutes Exam Vital Signs (past 8 hours): - 03/24/19 05:33 Temperature 97.8 F Pulse Rate 67 Respiratory Rate 16 Blood Pressure 94/55 L Pulse Oximetry 99 Oxygen Delivery Method Room Air Oxygen Flow Rate 0 Narrative Exam Narrative: Abdomen is scaphoid. Dressings dry intact Objective Labs Result Diagrams: 03/23/19 03:00 03/23/19 03:00 Discharge Plan Discharge Plan Patient Disposition: Home Discharge comment: Your operation went well. You had acute appendicitis. It was not ruptured. Discharge orders & Medications Prescriptions: New oxycodone-acetaminophen [Percocet] 5-325 mg tablet 1 tab PO Q4H PRN (Reason: painful procedure) Qty: 10 RF: 0 gabapentin 300 mg capsule 300 mg PO BID Qty: 30 RF: 0 naproxen [Naprosyn] 500 mg tablet 500 mg PO BID PRN (Reason: painful procedure) Qty: 20 RF: 0 Continued Lexapro 30 mg PO DAILY RF: 0 clonidine 0.5 mg PO QPM RF: 0 Follow up/Referrals: Sherwin Nicole MD [Physician] - 2 Weeks (Please call my office and make an appointment to see me in 10-14 days. Your postoperative care is included in the operative care. So you will not receive any additional bills. If you have problems please call our office. If it is after hours listen to the entire message and at the end you will be connected with the page batting machine operator insulation. They will page the doctor on-call.) Romeo,Julius, BUSINESS INITIATIVES MANAGER [Primary Care Provider] - Diet/Activity/Treatments Diet: Diet as Tolerated Activity: Do not lift over 10 lb or strain for the next 4 weeks. You may walk. No cycling or swimming. No pool or tub for at least [address] into her pain-free off medication. Skin/Wound/Dressing Care Report to your healthcare provider any signs of infection, such as:: chills, fever, night sweats, increased pain, unusual drainage and unusual redness Dressing: You may remove the Band-Aids on Monday and shower. Leave the tape under the Band-Aids fall off on its own. Do not pick it off. Visit Report/Discharge Packet Visit Report Forms: Patient Portal/API, Stroke Signs & Symptoms Discharge Data Primary Care Provider: Julius Walters Attending Provider: Sandy Grullon Admit Date/Time: 03/23/19 05:26 Quality VTE Deep Vein Thrombosis/Pulmonary Embolism Present on Admission: No
--- NOTE | 2019-03-24 11:21 | PC.NURSE ---
Pt up ambulating in the halls. She denies pain. She has 3 small incisions to her lower abdomen that are cdi. She will be discharging home around 1200.
== END 2019-03-24 12:42 | disposition home or self-care (01) ==
LOC: ED 04:48 → AC 11:57
PROVIDERS: Specialist; Admitting Provider Surgery; Emergency Provider Emergency Medicine; PCP Registered Nurse Diabetes Educator; Visit Provider Surgery
PROC: 0DTJ4ZZ Resection of Appendix, Percutaneous Endoscopic Approach (ICD-10-PCS; CPT 44970; principal; 2019-03-23 09:00)
DX: K35.80 Unspecified acute appendicitis (principal); R10.84 Generalized abdominal pain; T78.40XA Allergy, unspecified, initial encounter; F41.9 Anxiety disorder, unspecified
CPT/HCPCS: 44970; 36415; 74177; 80053; 83690; 84703; 85025; 96361; 96365; 96372; 96375; 96376; 99220; 99285; G0378; J1100; J1650; J1885; J2250; J2270; J2405; J2543; J2704; J3010; Q9967

== ENCOUNTER → 2019-04-10 12:53 | Outpatient (CLI) | payer OTHER, SELFPAY ==
[2019-03-23 05:56] VITALS: BMI 20.8
[2019-04-10 13:13] LABS: Add Manual Diff / Slide Review NO; Basophils Absolute Auto 0 /uL (0-100); Basophils Percent Auto 0.6 % (0-2); Eosinophils Absolute Auto 100 /uL (0-450); Eosinophils Percent Auto 0.9 % (2-4); Hematocrit 39.6 % (36-46); Hemoglobin 13.7 g/dL (12.0-16.0); Lymphocytes Absolute Auto 1800 /uL (1100-4500); Lymphocytes Percent Auto 26.4 % (25-40); Mean Corpuscular HGB Conc 34.5 % (30-36); Mean Corpuscular Hemoglobin 33.8 PG (26-34); Monocytes Absolute Auto 400 /uL (0-900); Monocytes Percent Auto 5.6 % (3-14); Neutrophils Absolute Auto 4600 /uL (1500-7000); Neutrophils Percent Auto 66.5 % (50-75); Platelet Count 246 X10^3/uL (150-400); Red Blood Cell Count 4.04 X10^6/uL (4.0-5.2); Red Cell Distribution Width 12.6 % (11.6-14.8); White Blood Cell Count 6.9 X10^3/uL (4.5-11.0)
[2019-04-10 13:24] LABS: BUN Creatinine Ratio 25.7 (6-22); Blood Urea Nitrogen 18 mg/dL (7-17); Calcium 9.6 mg/dL (8.4-10.2); Carbon Dioxide 27 mmol/L (22-32); Chloride 103 mmol/L (98-107); Estimated Glomerular Filt Rate > 60.0 mL/min (>60); Glucose 103 mg/dL (70-100); HEMOLYSIS < 15 (0-50); Magnesium 1.7 mg/dL (1.6-2.3); Sodium 141 mmol/L (137-145)
== END ==
PROVIDERS: PCP Registered Nurse Diabetes Educator; Referring Provider Surgery; Visit Provider Surgery
DX: R10.9 Unspecified abdominal pain (principal)
CPT/HCPCS: 36415; 80048; 83735; 85025